=== PATIENT | male | born 1985 | race Caucasian/White ===

== ENCOUNTER 2022-08-26 14:08 | Outpatient (REF) | payer BC, SELFPAY ==
[2022-08-26 14:40] LABS: MANUAL DIFF FLAG NO
[2022-08-26 15:14] LABS: Basophils Absolute Auto 0.1 X10*3/uL (0.0-0.2); Basophils Percent Auto 0.5 % (0-2); Eosinophils Absolute Auto 0.4 X10*3/uL (0.0-0.4); Eosinophils Percent Auto 3.8 % (0-4); Hematocrit 42.6 % (42.0-52.0); Hemoglobin 14.6 g/dl (14.0-18.0); Imm Gran Abs Auto 0.05 X10*3/uL (0.00-0.03); Imm Gran Pct Auto 0.5 % (0.0-0.4); Lymphocytes Absolute Auto 2.7 X10*3/uL (1.2-4.9); Lymphocytes Percent Auto 26.5 % (20-40); Mean Corpuscular HGB Conc 34.3 g/dl (31.0-36.0); Mean Corpuscular Hemoglobin 27.7 pg (27.0-33.0); Mean Corpuscular Volume 80.8 fL (80.0-98.0); Mean Platelet Volume 11.2 fL (9.4-12.4); Monocytes Absolute Auto 0.6 X10*3/uL (0.1-1.2); Monocytes Percent Auto 5.5 % (2-11); Neutrophils Absolute Auto 6.5 x10*3/uL (2.0-8.3); Neutrophils Percent Auto 63.2 % (45-73); Platelet Count 168 X10*3/uL (160-400); Red Blood Count 5.27 X10*6/uL (4.60-5.80); Red Cell Distribution Width 12.5 % (11.0-16.0); White Blood Count 10.3 X10*3/uL (4.8-10.8)
[2022-08-26 15:41] LABS: Alanine Aminotransferase 15 U/L (0-40); Albumin Level 4.9 g/dL (3.5-5.0); Alkaline Phosphatase 59 U/L (39-117); Anion Gap 18 (12-20); Aspartate Amino Transferase 24 U/L (5-37); Bilirubin Total 0.7 mg/dL (0.0-1.0); Blood Urea Nitrogen 12 mg/dL (9-16); Calcium 9.6 mg/dL (8.4-10.2); Carbon Dioxide 25 mmol/L (22-29); Chloride 100 mmol/L (96-108); Cholesterol 222 mg/dL; Estimated Glomerular Filt Rate > 60; Glucose Random 72 mg/dL (60-115); HDL Cholesterol 63 mg/dL; LDL Cholesterol Calculated 145 mg/dl; Potassium 4.2 mmol/L (3.3-5.1); Sodium 139 mmol/L (135-145); Total Protein 8.3 g/dL (6.5-8.0); Triglycerides 71 mg/dL
== END 2022-08-26 14:09 | disposition home or self-care (01) ==
LOC: HO.LAB 14:08
PROVIDERS: PCP Internal Medicine; Visit Provider Internal Medicine
DX: Z00.00 Encounter for general adult medical examination without abnormal findings (principal); Z13.220 Encounter for screening for lipoid disorders
CPT/HCPCS: 36415; 80053; 80061; 82306; 85025

== ENCOUNTER 2023-10-20 11:29 | Outpatient (REF) | payer BC, SELFPAY ==
[2023-10-20 13:16] LABS: MANUAL DIFF FLAG NO
[2023-10-20 13:52] LABS: Alanine Aminotransferase 11 U/L (0-40); Albumin Level 4.8 g/dL (3.5-5.0); Alkaline Phosphatase 58 U/L (39-117); Anion Gap 14 (12-20); Aspartate Amino Transferase 18 U/L (5-37); Bilirubin Total 0.8 mg/dL (0.0-1.0); Blood Urea Nitrogen 14 mg/dL (9-16); Calcium 9.5 mg/dL (8.4-10.2); Carbon Dioxide 27 mmol/L (22-29); Chloride 100 mmol/L (96-108); Cholesterol 206 mg/dL (<200); Estimated Glomerular Filt Rate > 60; Glucose Random 75 mg/dL (60-115); HDL Cholesterol 52 mg/dL (>40); LDL Cholesterol Calculated 139 mg/dL (<100); Potassium 3.7 mmol/L (3.3-5.1); Sodium 137 mmol/L (135-145); Total Protein 7.7 g/dL (6.5-8.0); Triglycerides 76 mg/dL (<150)
[2023-10-20 13:53] LABS: Thyroid Stimulating Hormone 1.11 uIU/mL (0.32-4.0)
[2023-10-20 14:24] LABS: Basophils Percent Auto 0.5 % (0-2); Eosinophils Absolute Auto 0.3 X10*3/uL (0.0-0.4); Eosinophils Percent Auto 4.3 % (0-4); Hematocrit 41.8 % (42.0-52.0); Hemoglobin 14.2 g/dl (14.0-18.0); Imm Gran Abs Auto 0.02 X10*3/uL (0.00-0.03); Imm Gran Pct Auto 0.3 % (0.0-0.4); Lymphocytes Absolute Auto 2.1 X10*3/uL (1.2-4.9); Lymphocytes Percent Auto 36.7 % (20-40); Mean Corpuscular Hemoglobin 27.5 pg (27.0-33.0); Mean Platelet Volume 12.2 fL (9.4-12.4); Monocytes Absolute Auto 0.5 X10*3/uL (0.1-1.2); Monocytes Percent Auto 8.1 % (2-11); Neutrophils Absolute Auto 2.9 x10*3/uL (2.0-8.3); Neutrophils Percent Auto 50.1 % (45-73); Platelet Count 171 X10*3/uL (160-400); Red Blood Count 5.16 X10*6/uL (4.60-5.80); Red Cell Distribution Width 12.5 % (11.0-16.0); White Blood Count 5.8 X10*3/uL (4.8-10.8)
== END 2023-10-20 11:30 | disposition home or self-care (01) ==
LOC: HO.MANLDS 11:29
PROVIDERS: Visit Provider Internal Medicine
DX: F32.A Depression, unspecified (principal)
CPT/HCPCS: 36415; 80053; 80061; 84443; 85025

== ENCOUNTER 2025-02-08 10:08 | Outpatient (REF) | payer BC, SELFPAY ==
--- OUTSIDE RECORDS SUMMARY | 2025-02-08 11:52 | XMS_ITS | Data Portability ---
Author Organization [facility] Service Address [address] [place] [address] Assessment Encounter Date Assessment Date Assessment LastModified by Organization Details LastModified Time 10/03/2023 10/03/2023 [id number] [place] [id number] (HIGH SCALER) : LAKSHMI LOW MUST MEET 2 OF 3 ELEMENTS: PROBLEMS, DATA OR RISK ELEMENT 1: PROBLEMS ADDRESSED (LOW): 2 OR MORE SELF-LIMITED OR MINOR PROBLEMS OR 1 STABLE CHRONIC ILLNESS OR 1 ACUTE UNCOMPLICATED ILLNESS OR INJURY ELEMENT 2: DATA TO BE REVISED AND ANALYZED (LOW) MUST MEET 1 OF 2 CATEGORIES: CATEGORY 1. REVIEW OF PRIOR EXTERNAL NOTES/RESULTS, ORDERING OF TEST(S) CATEGORY 2. ASSESSMENT REQUIRING INDEPENDENT HISTORIAN(S) INCLUDE WHO THE HISTORIAN IS AND RELATION TO PT AND WHY PT IS UNABLE TO GIVE COMPLETE HISTORY ELEMENT 3: RISK (LOW) RISK OF COMPLICATIONS AND/OR MORBIDITY OR MORTALITY OF PATIENT MANAGEMENT PROVIDER MUST THOROUGHLY DOCUMENT ALL OF THE ELEMENTS COVERED Not available 10/03/2023 16:10:18 10/24/2023 10/24/2023 [id number] [place] [id number] (HIGH SCALER) : LAKSHMI LOW MUST MEET 2 OF 3 ELEMENTS: PROBLEMS, DATA OR RISK ELEMENT 1: PROBLEMS ADDRESSED (LOW): 2 OR MORE SELF-LIMITED OR MINOR PROBLEMS OR 1 STABLE CHRONIC ILLNESS OR 1 ACUTE UNCOMPLICATED ILLNESS OR INJURY ELEMENT 2: DATA TO BE REVISED AND ANALYZED (LOW) MUST MEET 1 OF 2 CATEGORIES: CATEGORY 1. REVIEW OF PRIOR EXTERNAL NOTES/RESULTS, ORDERING OF TEST(S) CATEGORY 2. ASSESSMENT REQUIRING INDEPENDENT HISTORIAN(S) INCLUDE WHO THE HISTORIAN IS AND RELATION TO PT AND WHY PT IS UNABLE TO GIVE COMPLETE HISTORY ELEMENT 3: RISK (LOW) RISK OF COMPLICATIONS AND/OR MORBIDITY OR MORTALITY OF PATIENT MANAGEMENT PROVIDER MUST THOROUGHLY DOCUMENT ALL OF THE ELEMENTS COVERED Not available 10/24/2023 14:17:34 03/31/2024 03/31/2024 [id number] [place] [id number] (HIGH SCALER) : MDM LOW MUST MEET 2 OF 3 ELEMENTS: PROBLEMS, DATA OR RISK ELEMENT 1: PROBLEMS ADDRESSED (LOW): 2 OR MORE SELF-LIMITED OR MINOR PROBLEMS OR 1 STABLE CHRONIC ILLNESS OR 1 ACUTE UNCOMPLICATED ILLNESS OR INJURY ELEMENT 2: DATA TO BE REVISED AND ANALYZED (LOW) MUST MEET 1 OF 2 CATEGORIES: CATEGORY 1. REVIEW OF PRIOR EXTERNAL NOTES/RESULTS, ORDERING OF TEST(S) CATEGORY 2. ASSESSMENT REQUIRING INDEPENDENT HISTORIAN(S) INCLUDE WHO THE HISTORIAN IS AND RELATION TO PT AND WHY PT IS UNABLE TO GIVE COMPLETE HISTORY ELEMENT 3: RISK (LOW) RISK OF COMPLICATIONS AND/OR MORBIDITY OR MORTALITY OF PATIENT MANAGEMENT PROVIDER MUST THOROUGHLY DOCUMENT ALL OF THE ELEMENTS COVERED Not available 03/31/2024 14:33:27 Plan of Treatment Reminders Order Date Submit Date Provider Last Modified By Organization Details Last Modified Time Details Appointments ANNUAL EXAM 2024 09:30A M DR COWAN Not available Not available Not available Lab CMP, serum or plasma 2024 025 [facility], [address] [place] [address], [id number], 02/08/2025 09:58:48 lipid panel, blood 2024 025 [facility], [address] [place] [address], [id number], 02/08/2025 09:58:48 vitamin D, 25-hydrox y, total, serum 2024 025 [facility], [address] [place] [address], [id number], 02/08/2025 09:58:48 CBC w/ diff 2024 025 [facility], [address] [place] [address], [id number], 02/08/2025 09:58:48 CMP, serum or plasma 2022 023 [facility], [address] [place] [address], [id number], 10/21/2023 11:08:21 TSH, serum or plasma 2022 023 [facility], [address] [place] [address], [id number], 10/21/2023 11:08:21 CBC 2022 023 [facility], [address] [place] [address], [id number], 10/21/2023 11:08:21 lipid panel, serum 2022 023 [facility], [address] [place] [address], [id number], 10/21/2023 11:08:21 Referral None recorded. Procedures None recorded. Surgeries None recorded. Imaging None recorded. Medication Orders duloxetin e 30 mg capsule,d elayed release 2022 023 [place] [id number], [address] [place], [id number], 10/03/2023 16:13:32 Patient TargetsNo targets recorded. Patient InstructionsNo instructions recorded. Reason for Referral None Reported. Results Created Date Observation Date Name Description Value Unit Range Abnormal Flag Note LastModifiedBy Organization Detail LastModifiedTime Result Notes None recorded. Problems Name Problem SNOMED Code Status Onset Date Resolution Date Notes Provider Name and Address Organization Details Recorded Time Degenera tion of cervical interver tebral disc 96164168 Active 2020 Lamar barbour [facility] 09:18:29 Prolapse d lumbar interver tebral disc 575303058 Active 2020 Lamar barbour [facility] 09:18:38 Vitamin D deficien cy 39185421 Active [address] [facility] 09:19:31 Tenosyno vitis of wrist 382327179 Active 2021 Lenard Cowan, DO [address] [place], [address], [facility] 2 14:05:56 Depressi ve disorder 53789781 Completed 202201/30/2024 Lenard Cowan, DO [address] [place], [address], [facility] 4 14:02:10 Habitual snoring 860098000 Active 2024 Lenard Cowan, DO [address] [place], [address], [facility] 5 09:58:39 Problem Notes None recorded. Medical Equipment None Reported. Allergies Allergen ID Allergen Name Allergen Category Reaction Reaction Severity Criticality Documentation Date Start Date Code Code System Note Provider Name and Address Organization Details Recorded Time 4457 mold extract environme nt Not available Not available Not available 03/06/2021 91410 8 RxNorm Lamar Huston [facility] 09:18:13 4478 cat dander environme nt Not available Not available Not available 03/13/2021 [id number] [facility] Lamar Huston [facility] 1 10:34:10 4479 tree and shrub pollen environme nt,medica tion Not available Not available Not available 03/13/2021 45595 Deonna Huston [facility] 1 10:34:16 Medications Name Sig Start Date Stop Date Status Note LastModified by Organization Details LastModified Time duloxetine 30 mg capsule,javon yed release TAKE 1 CAPSULE BY MOUTH EVERY DAY active Not Available Not Available No t Available duloxetine 60 mg capsule,javon yed release Take 1 capsule every day by oral route for 30 days. 025 active Not Available Not Available Not Avai lable Probiotic active Not Available Not Michaela ilable Not Available Vitals Date Recorded Body height Body mass index (BMI) Body weight Heart rate Oxygen saturation Oxygen saturation in Arterial blood by Pulse oximetry Systolic blood pressure Diastolic blood pressure Provider Name and Address Organization Details Last Updated DateTime 3 167.64 cm 25.5 kg/m2 57045.5 9 g 75 /min 99 % 99 % 135 mm[Hg] 82 mm[Hg] Tanya Saucedo [facility] 3 15:49:19 Date Recorded Body height Body mass index (BMI) Body weight Heart rate Oxygen saturation Oxygen saturation in Arterial blood by Pulse oximetry Systolic blood pressure Diastolic blood pressure Provider Name and Address Organization Details Last Updated DateTime 4 167.64 cm 26 kg/m2 02619.6 5 g 76 /min 98 % 98 % 140 mm[Hg] 98 mm[Hg] Heather Link [facility] 4 13:38:20 Date Recorded Body height Body mass index (BMI) Body weight Heart rate Respiratory rate Oxygen saturation Oxygen saturation in Arterial blood by Pulse oximetry Systolic blood pressure Diastolic blood pressure Provider Name and Address Organization Details Last Updated DateTime 4 167.64 cm 26 kg/m2 20354.3 7 g 98 /min 16 /min 99 % 99 % 120 mm[Hg] 66 mm[Hg] Yadiel Arnago [facility] 4 14:10:34 Date Recorded Body height Body mass index (BMI) Body weight Heart rate Oxygen saturation Oxygen saturation in Arterial blood by Pulse oximetry Systolic blood pressure Diastolic blood pressure Provider Name and Address Organization Details Last Updated DateTime 5 167.64 cm 26.3 kg/m2 02246.5 6 g 73 /min 98 % 98 % 128 mm[Hg] 78 mm[Hg] Eli Meraz [facility] 5 09:40:29 Social History Question Answer Notes LastModified by Organizat ion Details LastModified Time Tobacco Smoking Status Never Smoker Lamar barbour [facility] 03/06/2021 09:20:19 What Was The Date Of Your Most Recent Tobacco Screening? 03/31/2024 [email or web address] Information not available 03/31/2024 Sex: Unknown Functional Status None recorded. Mental Status None recorded. Family History Relationship Description Onset Age of this Age Resolved Age Notes LastModified by Organization Details LastModified Time Maternal Grandmother Arthritis [email or web address] Not available 09/2021 10:35:05 Paternal Grandmother Arthritis jvanasse Not available 09/2021 10:35:05 Paternal Grandfather Heart disease jvanasse Not available 2020 10:35:21 Paternal Grandfather Hypertensive disorder jvanasse Not available 2020 10:35:51 Mother Heart disease jvanasse Not available 2020 10:35:21 Mother Osteoporosis jvanasse Not avail able 03/13/2021 10:36:07 Father Hypertensive disorder jvanasse Not available 2020 10:35:51 Maternal Grandfather Osteoporosis jvanasse Not available 03/13/2021 10:36:07 Medical History No medical history recorded. Immunizations Vaccine Type Date Status Note Provider Nam e and Address Organization Details Recorded Time COVID-19 vaccine, vector-nr, rS-ChAdOx1, PF, 0.5 mL 02/05/[address] [facility] 06/22/2021 16:15:06 Influenza, [place] 08/30/[address] [facility] 09/01/2024 11:10:23 SARS-COV-2 (COVID-19) vaccine, UNSPECIFIED 08/30/[address] [facility] 09/01/2024 11:10:35 Past Encounters Encounter ID Performer Location Encounter Start Date Encounter Closed Date Diagnosis/Indication Diagnosis SNOMED-CT Code Diagnosis ICD10 Code Diagnosis Note [id number] Lenard Cowan DO [facility] [address] [facility],[place] [address] 03/12/2021 16:24:41 03/12/2021 17:13:05 Low back pain 474967451 M54.5 will get xr LS spine and as soon as able will get the MRI done looking for the herniated lumbar disc Herniation of lumbar intervertebral disc with sciatica 6207903882 72871 M51.16 [id number] ÓSCAR GRAY [facility] [address] [facility], [place] [address] 06/25/2021 15:34:36 06/25/2021 16:08:44 Degeneration of lumbar intervertebral disc 68851940 M51.36 will resubmit referral of MRI to [facility] with applicable info for all therapies failed prior to MRI [id number] Lenard Cowan [facility] [address] [facility] [address] [address] 07/24/2022 13:39:30 07/24/2022 14:37:37 Active or passive immunization 157165568 Z23 Adult heal th examination 765405828 Z00.00 Tenosynovi tis of wrist 586198141 M65.839 has developed a great deal of pain on right hand dominant wrist [id number] Lenard Cowan [facility] [address] [facility],[place] 7 10/03/2023 15:44:29 10/06/2023 10:12:38 Depressive disorder 24434107 F32.A we will try this [id number] Lenard Cowan [facility] [address] [facility],[place], [place] 7 10/24/2023 09:04:15 10/24/2023 14:19:27 Depressive disorder 35804925 F32.A we will cont this med and we will have him continue and rechk in 1 mo [id number] Lenard Cowan [facility] [address] [facility],[place] [address] 01/30/2024 13:33:42 01/30/2024 14:07:30 Active or passive immunization 520655886 Z23 Adult heal th examination 733289798 Z00.00 [id number] Lenard Cowan [facility] [address] [facility] [address] [facility] [place] [address] 03/31/2024 14:04:21 03/31/2024 15:08:21 Depression screening 676741142 Z13.31 neg Elevated blood-pressure reading without diagnosis of hypertension 392216681 R03.0 here for rechk he will get the bp checked at home [id number] Lenard Cowan [facility] [address] [facility] [address] [address] 02/08/2025 09:34:31 02/08/2025 09:58:05 Active or passive immunization 546425905 Z23 recc tdap Adult heal th examination 663941180 Z00.00 Health Concerns Section Related Observation LastModified by Organization Detai ls LastModified Time None Recorded Concern Status LastModified by Organization Details LastModified Time None Recorded Advance Directives Directive None Recorded Payers Encounter Date Sequence Insurance Name Policy Number Policy Clark Covered Member ID Clark Member ID Guarantor Name 10/03/2023 1 [place] [id number] Jewels Faith [id number] [address] 10/24/2023 1 [place] [id number] Jewels Faith [id number] 01/30/2024 1 [place] [id number] Jewels Faith [id number] 03/31/2024 1 [place] [id number] Jewels Faith [id number] 02/08/2025 1 [place] [id number] Jewels Faith [id number] [place] Notes Date Note Type Note Provider Name and Address Organization Details Recorded Time 3 text/htm l here for cynthia nd is relating that he has been in a rut and feeling mood has been down Lenard Cowan DO [address] [place] [address], [address], [facility] 10/03/2023 16:16:47 3 text/htm l patient is evaluated via tele/video assessment per patient consentduring current pandemicrelates he is in [place] has been feeling very good and taking the meds in the am but got a bit drowsy and relates moved to evening and then seems to be slowly getting better and 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 Lenard Cowan DO [address] [place], [address], [facility] 10/24/2023 14:26:02 4 text/htm l Annual WellnessReported bypatient.Diet and Nutrition:healthy diet Fracture Risk:no history of fractures; no recent explained fracture; no sudden unexplained fractures; no previous musculoskeletal injuries Physical Activity:exercises on a regular basis; recent increase in physical activity; good physical condition Additional Lifestyle Factors:no tobacco use; no alcohol intake; stopped drinking alcohol Depression Risk:never feels sad, empty, or tearful; no loss of interest in activities; no significant changes in weight; no sleep disturbances or insomnia; no agitation; no loss of energy; no feelings of worthlessness or guilt; no thoughts of suicide; no history of depression; no history of mood disorders Hearing:no loss of hearing Vision:no vision problems Lenard Cowan DO [address] [place] [address], [phone], [facility] 01/30/2024 14:02:56 4 text/htm l here for rechk of bp at home is okbp now is excellent prob just an anomaly that elizabeth keep checking at home Lenard Cowan DO [address] [place], [address], [facility] 03/31/2024 14:38:04 5 text/htm l Annual WellnessReported bypatient.Diet and Nutrition:healthy diet Fracture Risk:no history of fractures; no recent explained fracture; no sudden unexplained fractures; no previous musculoskeletal injuries Physical Activity:exercises on a regular basis; recent increase in physical activity; good physical condition Additional Lifestyle Factors:no tobacco use; no alcohol intake; stopped drinking alcohol Depression Risk:never feels sad, empty, or tearful; no loss of interest in activities; no significant changes in weight; no sleep disturbances or insomnia; no agitation; no loss of energy; no feelings of worthlessness or guilt; no thoughts of suicide; no history of depression; no history of mood disorders Hearing:no loss of hearing Vision:no vision problemsCare Management - HypertensionReported bypatient.Self Care:not under emotional stress Severity:symptoms are improving; does not interfere with daily activities Associated Symptoms:no dizziness; no lightheadedness; no chest pain; no shortness of breath; no palpitations; no edema; no calf muscle cramps; no blurred vision; no confusion; no headaches; no fatigue discussion re duloxetine and feels we should increase dosealso complaining about excessive snoring Lenard Cowan, DO [address] [facility], [place], [address], [facility] 02/08/2025 09:58:04
--- OUTSIDE RECORDS SUMMARY | 2025-02-08 11:52 | XMS_ITS | Continuity of Care Document ---
Author Organization [facility], [facility] Address [address] [facility] [place] [address] [place] [address] Assessment No assessment recorded. Plan of Treatment Reminders Order Date Submit Date Provider Last Modified By Organization Details Last Modified Time Details Appointments ANNUAL EXAM 2024 09:30A M DR COWAN Not available Not available Not available Lab CMP, serum or plasma 2024 025 [facility], [address] [place] [address], [id number], 02/08/2025 09:58:48 lipid panel, blood 2024 025 [facility], [address] [place] [address], [address], 02/08/2025 09:58:48 vitamin D, 25-hydro xy, total, serum 2024 025 [facility], [address] [place] [address], [address], 02/08/2025 09:58:48 CBC w/ diff 2024 025 [facility], [address] [place] [address], [address], 02/08/2025 09:58:48 Referral None recorded . Procedures None recorded . Surgeries None recorded . Imaging None recorded . Medication Orders None recorded . Patient TargetsNo targets recorded. Patient InstructionsNo instructions recorded. Reason for Referral None Reported. Problems Name Problem SNOMED Code Status Onset Date Resolution Date Notes Provider Name and Address Organization Details Recorded Time Degenera tion of cervical interver tebral disc 66435124 [facility] 09:[facility] Prolapse d lumbar interver tebral disc 052269674 Active 2020 Lamar barbour [facility] 1 09:18:38 Vitamin D deficien cy 69982358 [facility] 09:19:31 Tenosyno vitis of wrist 161204960 Active 2021 Lenard Cowan, [address], [address], [facility] 2 14:05:56 Depressi ve disorder 07149600 Completed 202201/30/2024 Lenard Cowan, [address], [address], [facility] 4 14:02:10 Habitual snoring 488676311 Active 2024 Lenard Cowan, [address], [address], [facility] 5 09:58:39 Problem Notes None recorded. Medical Equipment None Reported. Allergies Allergen ID Allergen Name Allergen Category Reaction Reaction Severity Criticality Documentation Date Start Date Code Code System Note Provider Name and Address Organization Details Recorded Time 4457 mold extract environme nt Not available Not available Not available 03/06/2021 16635 8 [facility] 09:18:13 4478 cat dander environme nt Not available Not available Not available 03/13/2021 [id number] [facility] 10:34:10 4479 tree and shrub pollen environme nt,medica tion Not available Not available Not available 03/13/2021 [id number] [facility] 10:34:16 Medications Name Sig Start Date Stop [...] Updated DateTime 5 167.64 cm 26.3 kg/m2 37634.5 6 g 73 /min 98 % 98 % 128 mm[Hg] 78 mm[Hg] Eli Meraz [facility] 5 09:40:29 Social History Question Answer Notes LastModified by Organizat ion Details LastModified Time Tobacco Smoking Status [facility] 03/06/2021 09:20:19 What Was The [...] PF, 0.5 mL 02/05/2021 completed Nj barbour [facility] 06/22/2021 16:15:06 Influenza, [place] 08/30/2024 completed Nj barbour [facility] 09/01/2024 11:10:23 SARS-COV-2 (COVID-19) vaccine, UNSPECIFIED 08/30/2024 completed Nj barbour [facility] 09/01/2024 11:10:35 Past Encounters Encounter ID Performer Location Encounter Start Date Encounter Closed Date Diagnosis/Indication Diagnosis SNOMED-CT Code Diagnosis ICD10 Code Diagnosis Note [id number] Lenard Cowan DO [facility] [address] [facility],[place] [address] 02/08/2025 09:34:31 02/08/2025 09:58:05 Active or passive immunization 264789166 Z23 recc tdap Adult heal th examination 482057247 Z00.00 Health Concerns Section Related Observation LastModified by Organization Detai ls LastModified Time None Recorded Concern Status LastModified by Organization Details LastModified Time None Recorded Payers Encounter Date Sequence Insurance Name Policy Number Policy Clark Covered Member ID Clark Member ID Guarantor Name 02/08/2025 1 [facility] [id number] Jewels Faith [id number] [place] Notes Date Note Type Note Provider Name and Address Organization Details Recorded Time 5 text/htm l Annual WellnessReported bypatient.Diet and [...] about excessive snoring Lenard Cowan, DO [address] [facility], [place], [address], [facility] 02/08/2025 09:58:04
[2025-02-08 13:12] LABS: MANUAL DIFF FLAG NO
[2025-02-08 13:33] LABS: Basophils Absolute Auto 0.1 X10*3/uL (0.0-0.2); Basophils Percent Auto 0.8 % (0-2); Eosinophils Absolute Auto 0.4 X10*3/uL (0.0-0.4); Hemoglobin 14.5 g/dl (14.0-18.0); Imm Gran Abs Auto 0.05 X10*3/uL (0.00-0.03); Imm Gran Pct Auto 0.7 % (0.0-0.4); Lymphocytes Absolute Auto 2.4 X10*3/uL (1.2-4.9); Lymphocytes Percent Auto 32.1 % (20-40); Mean Corpuscular HGB Conc 33.7 g/dl (31.0-36.0); Mean Corpuscular Hemoglobin 27.4 pg (27.0-33.0); Mean Corpuscular Volume 81.3 fL (80.0-98.0); Mean Platelet Volume 11.8 fL (9.4-12.4); Monocytes Absolute Auto 0.4 X10*3/uL (0.1-1.2); Monocytes Percent Auto 5.7 % (2-11); Neutrophils Absolute Auto 4.2 x10*3/uL (2.0-8.3); Neutrophils Percent Auto 55.7 % (45-73); Platelet Count 170 X10*3/uL (160-400); Red Blood Count 5.29 X10*6/uL (4.60-5.80); Red Cell Distribution Width 12.9 % (11.0-16.0); White Blood Count 7.6 X10*3/uL (4.8-10.8)
[2025-02-08 14:03] LABS: Alanine Aminotransferase 49 U/L (0-40); Albumin Level 4.7 g/dL (3.5-5.0); Alkaline Phosphatase 66 U/L (39-117); Anion Gap 13 (12-20); Aspartate Amino Transferase 35 U/L (5-37); Bilirubin Total 0.4 mg/dL (0.0-1.0); Blood Urea Nitrogen 9 mg/dL (9-16); Calcium 9.7 mg/dL (8.4-10.2); Carbon Dioxide 27 mmol/L (22-29); Chloride 105 mmol/L (96-108); Cholesterol 219 mg/dL (<200); Estimated Glomerular Filt Rate > 60; Glucose Random 78 mg/dL (60-115); HDL Cholesterol 61 mg/dL (>40); LDL Cholesterol Calculated 136 mg/dL (<100); Potassium 4.1 mmol/L (3.3-5.1); Sodium 141 mmol/L (135-145); Total Protein 7.7 g/dL (6.5-8.0); Triglycerides 110 mg/dL (<150)
[2025-02-15 02:19] LABS: VITAMIN D (1,25 OH) D3 48 pg/mL; Vit D (1,25-Dihydroxy) Total 48 pg/mL (18-72); Vitamin D (1,25 OH) D2 <8 pg/mL
== END 2025-02-08 10:09 | disposition home or self-care (01) ==
LOC: HO.MANLDS 10:08
PROVIDERS: Visit Provider Internal Medicine
DX: Z00.00 Encounter for general adult medical examination without abnormal findings (principal); Z13.6 Encounter for screening for cardiovascular disorders
CPT/HCPCS: 36415; 80053; 80061; 82652; 85025